=== PATIENT | female | born 2005 | race African-American/Black ===

== ENCOUNTER 2025-09-10 13:31 | Emergency (ER) | payer OTHER, SELFPAY ==
--- NOTE | 2025-09-10 13:35 | ED.GENADULT ---
HPI - General Adult General Chief complaint: Upper Respiratory Infection Stated complaint: Sinus Time Seen by Provider: 09/10/25 13:34 Source: patient Mode of arrival: ambulatory Limitations: no limitations History of Present Illness HPI narrative: Pt is a 20 y/o female presenting with c/o URI sx. Sx reported include postnasal drip, cough, congestion, rhinorrhea, sore throat. Sx began 2 days ago. Reports numerous sick contacts (also works in [employer] ) with various viral infections, denies any known exposure to COVID, FLU, STREP, PNA. No tx initiated [employer]. No additional complaints. Related Data Home Medications ?Medication ?Instructions ?Recorded ?Confirmed ?Last Taken ?Type No Home Medications 09/10/25 09/10/25 Unknown History Allergies Allergy/AdvReac Type Severity Reaction Status Date / Time No Known Allergies Allergy Verified 09/10/25 13:43 Review of Systems Review of Systems: CONSTITUTIONAL: Denies body aches, fever, chills, or sweats. EYES: Denies visual changes, redness, or discharge. ENT: Reports rhinorrhea, congestion, sore throat, postnasal drip, denies otalgia. CARDIOVASCULAR: Denies chest pain, palpitations, or edema. RESPIRATORY: reports cough denies dyspnea. GASTROINTESTINAL: Denies abdominal pain, nausea, vomiting, or diarrhea. GENITOURINARY: Denies dysuria or hematuria. SKIN: Denies rash, itching, or wounds. MUSCULOSKELETAL: Denies back pain, joint pain, or myalgia. NEUROLOGIC: Denies headache, numbness, tingling, or weakness. PSYCH: Denies depression or anxiety. All systems reviewed & are unremarkable except as noted in HPI and below Exam Narrative: GENERAL: Well-appearing, well-nourished, and in no acute distress. HEAD: Normocephalic, atraumatic. EYES: EOMI. No redness or drainage. Conjunctivae normal. ENT: Mucous membranes pink and moist. Nares clear. No rhinorrhea. tonsils are surgically absent. TMs normal bilaterally. Throat normal. Uvula midline. Voice is normal. There is no sinus tenderness with palpation. NECK: Normal AROM. Supple. No lymphadenopathy. CHEST: No respiratory distress. Clear to auscultation. HEART: Regular rate and rhythm. No murmur appreciated. EXTREMITIES: Normal range of motion. SKIN: Warm, dry, no rash. Capillary refill normal. Normal skin turgor. NEURO: No focal deficits. Alert and oriented x3. Gait steady. PSYCH: Normal affect. No signs of depression or anxiety. Course Course Level of Care: Express Care Visit Vital Signs Vital signs: Vital Signs Temperature 97.6 F 09/10/25 13:46 Pulse Rate 106 H 09/10/25 13:46 Respiratory Rate 16 09/10/25 13:46 Blood Pressure 126/74 09/10/25 13:46 Pulse Oximetry 99 09/10/25 13:46 Temperature 97.6 F 09/10/25 13:46 Pulse Rate 106 H 09/10/25 13:46 Respiratory Rate 16 09/10/25 13:46 Blood Pressure 126/74 09/10/25 13:46 Pulse Oximetry 99 09/10/25 13:46 MDM MDM Narrative Medical decision making narrative: declined POC testing. Differential Diagnosis Differential Diagnosis: COVID, FLU, STREP, PNA, other viral URI. Discharge Plan Discharge Clinical Impression: Upper respiratory infection Patient Disposition: Home Condition: Stable Instructions: Antibiotic Form, Viral Syndrome (ED) Additional Instructions: Go straight to ER should your symptoms become worse or should any new symptoms develop Patient Language: Welsh Prescriptions: No Action No Home Medications Follow-up/Referrals: UNKNOWN,DOCTOR [Non-Staff] - 09/11/25 Time of Disposition: 13:54
[2025-09-10 13:46] VITALS: BP 126/74; PULSE 106; RESP 16; TEMP 36.4; O2SAT 99
== END 2025-09-10 13:56 | disposition home or self-care (01) ==
PROVIDERS: Emergency Provider Registered Nurse
DX: J06.9 Acute upper respiratory infection, unspecified (principal)
CPT/HCPCS: 99202; G0463